=== PATIENT | male | born 1980 ===

== ENCOUNTER 2017-07-31 09:57 | Emergency (ER) | payer SELFPAY ==
[~2017-07-31] VITALS: Ht 180.3 cm; Wt 86.0 kg
[2017-07-31 10:20] VITALS: BP 142/79; PULSE 71; RESP 18; TEMP 98.4; O2SAT 99
[2017-07-31] MEDS ORDERED: CLON0.5T PO (10:34)
[2017-07-31] MEDS ORDERED: TRAZ50TA12 PO (10:34)
[2017-07-31] MEDS ORDERED: EFFE150C PO (10:34)
--- NOTE | 2017-07-31 11:18 | PD ---
HPI Chief Complaint: Musculoskeletal Complaint Time Seen by Provider: 10:30 Travel History International Travel<30 days: No Contact w/Intl Traveler<30days: No Traveled to known affect area: No History of Present Illness HPI Patient comes emergency department complaining of continued left hamstring pain. Patient reports injury originally occurred 2 months when he was stepping up onto the bed of his truck causing the pain. Patient reports he was seen in a different ER urgently told he had a pulled muscle was given a prescription of hydrocodone and Flexeril. Patient states that he has not followed up with a different walk-in clinic and again was told he had a pulled muscle. Patient reports he has had x-rays but not an MRI. Patient denies following up with anyone else for this. Pain is worse with walking, applying pressure, and certain movement. Patient has been using [id number] ibuprofen with minimal relief as well as using a crutch to help not put as much weight on the leg. Pain radiates distally. Denies any fevers, IV drug use, or other known injury. History Social History Alcohol Use: No Tobacco Use: No Allergies-Medications (Allergen,Severity, Reaction): Coded Allergies: amiodarone (Verified Adverse Reaction, Severe, Rash, 07/31/17) PUSSY RASH AT SITE Reported Meds & Prescriptions Reported Meds & Active Scripts Active Reported Clonazepam 0.5 Mg Tab 0.5 Mg PO BID Trazodone (Trazodone HCl) 50 Mg Tab 50 Mg PO HS Effexor XR 24 HR (Venlafaxine HCl) 150 Mg Cap 300 Mg PO DAILY Review of Systems Except as stated in HPI: all other systems reviewed are Neg Physical Exam Narrative GENERAL: Well-developed, overly nourished, in no acute distress, and non-ill appearing. SKIN: Focused skin assessment warm and dry. HEAD: Atraumatic. Normocephalic. EYES: Pupils equal and round. EOMI. No scleral icterus. No injection or drainage. ENT: No nasal bleeding or discharge. Mucous membranes pink and moist. NECK: Trachea midline. Supple. No nuclear rigidity. CARDIOVASCULAR: Dorsal pulses 2+, intact, and equal bilaterally. Capillary refill less than 2 seconds. RESPIRATORY: No accessory muscle use. No respiratory distress. MUSCULOSKELETAL: No obvious deformities. No clubbing. No cyanosis. No edema. Full range of motion. Hip: FROM and equal BL with passive flexion, extension, Abduction, Adduction, and internal/external rotation. Pulses equal BL distal to injury. Capillary refill less than 2 seconds distal to injury and equal BL. FROM distal to injury and equal BL. Strength distal to injury equal BL. NV intact distal to injury and equal BL. Plantar flexion and dorsal flexion equal BL. Dorsal pulses equal BL. Sensation equal BL 1st web space. Patient reports point tenderness over left posterior hamstring. No crepitus. NEUROLOGICAL: Awake and alert. No obvious cranial nerve deficits. Motor grossly within normal limits. Normal speech. PSYCHIATRIC: Appropriate mood and affect; insight and judgment normal. Data Data Last Documented VS Vital Signs Date Time Temp Pulse Resp B/P (MAP) Pulse Ox O2 Delivery O2 Flow Rate FiO2 07/31/17 10:20 98.4 71 18 142/79 (100) 99 MDM Medical Screen Exam Complete: Yes Emergency Medical Condition: No Narrative Course History and physical exam findings are not consistent with an emergent medical condition. He was given the option of receiving additional care, but has declined. Therefore the appropriate counseling recommendations were discussed with the patient and he was instructed to follow-up with his primary care physician as soon as possible for reevaluation. Patient was also informed of community resources from which he can obtain additional care. He is agreeable and verbalizes an understanding of the proposed plan. The patient states he will immediately return to the emergency department if his current complaints do not improve, new symptoms arise, or emergent condition develops. Patient ambulated out of the emergency department without difficulty with his crutch. Primary Impression: Encounter for medical screening examination Disposition: [facility]-ED USE ONLY Condition: Stable Clifford Renteria Jul 31, 2017 11:18
== END 2017-07-31 11:12 | disposition left against medical advice (07) ==
LOC: NEPK 09:57
DX: M79.652 Pain in left thigh (principal)
CPT/HCPCS: 99281